=== PATIENT | male | born 1975 | race Hispanic/Latino ===

== ENCOUNTER → 2016-07-26 | Outpatient (CLI) | payer OTHER, MEDICARE ==
--- NOTE | 2016-07-26 10:52 | REP ---
CERVICAL SPINE SERIES: Eight views of the cervical spine are performed. There is no compression fracture. There is minor loss of height of the very anterior aspect of the C5 and C6 vertebral bodies, chronic in nature. There appear to be ligamentous calcifications anteriorly at C4-5 and C5-6 disc levels. There is no subluxation. The disc spaces are relatively well preserved with some minimal narrowing at C5-6 and C6-7 disc spaces. I see no radiographic evidence of significant neural foraminal narrowing. There is mild spurring of C4 through C7 vertebral bodies. IMPRESSION: Mild degenerative changes as above. Signed by Milo Huang MD 07/26/2016 04:35 P
--- NOTE | 2016-07-26 11:05 | REP ---
SACROILIAC JOINTS: Four views of sacroiliac joints performed. There is no fracture or malalignment. There is very mild joint space narrowing and subchondral sclerosis at the inferior aspect of both sacroiliac joints. IMPRESSION: Minor degenerative changes. Signed by Milo Huang MD 07/26/2016 04:35 P
--- NOTE | 2016-07-26 11:12 | REP ---
LUMBOSACRAL SPINE SERIES: Lumbosacral spine series performed with seven total views obtained, including lateral, flexion and extension views. There is no compression fracture or malalignment. There is no subluxation. There is no spondylolysis or spondylolisthesis. The disc spaces are well preserved. Tiny spur is seen at L1 and L5 levels. The posterior elements are intact. IMPRESSION: Tiny spurs at L1 and L5. Otherwise unremarkable exam. Signed by Milo Huang MD 07/26/2016 04:35 P
== END ==
LOC: MERGE 08:31 → M LAB 08:31
PROVIDERS: ATTEND Neurological Surgery
DX: E66.9 Obesity, unspecified (principal); M25.559 Pain in unspecified hip; M47.892 Other spondylosis, cervical region; M47.896 Other spondylosis, lumbar region

== ENCOUNTER → 2016-07-29 | Outpatient (CLI) | payer MEDICARE, OTHER ==
--- NOTE | 2016-07-29 14:01 | REP ---
MRI brain without contrast: History: Headache. . Comparison study: No comparison imaging. Technique: Axial and sagittal imaging planes are utilized for T1 and T2-weighted scans. Sequences include spin-echo, fast spin echo, FLAIR, and diffusion weighted sequences. MRI findings: No bony calvarial lesion is seen. Craniocervical junction and upper cervical cord are normal in appearance. There is no MR evidence of significant paranasal sinus disease. There is a 1 cm mucous retention cyst in the floor the right maxillary sinus. No intraorbital abnormality is seen. The lateral, third, and fourth ventricles are normal in size and position. Huang-white differentiation pattern is intact above and below the tentorium. There is no evidence of intracranial hemorrhage. No mass, infarction, extra-axial fluid collection or midline shift is seen. No abnormal white matter lesion is seen. Impression: Negative noncontrast brain MRI study. Signed by Scott Oneal MD 07/29/2016 01:52 P
--- NOTE | 2016-07-29 14:16 | REP ---
MRI cervical spine without contrast: History: Neck pain and cephalgia. Comparison radiographs are from July 26, 2016. Technique: Sagittal and axial T1 and T2-weighted scans are acquired in the usual fashion with and without fat saturation. Sequences include spin echo, turbo spin-echo, and STIR imaging sequences. MRI findings: There is slight straightening of the normal cervical lordosis. Cervical vertebral body heights are preserved. Alignment is normal. The cervical cord is normal in coarse, caliber and signal intensity on T1 and T2-weighted scans. Craniocervical junction is unremarkable. No extra vertebral abnormality is appreciated. On T2-weighted scans, there is some decreased disc space height and signal intensity at the C5-6 and C6-7 disc space levels consistent with early degenerative disc disease at these two levels. At C5-6, axial and sagittal images demonstrate minimal diffuse disc bulging. No neural foraminal narrowing is seen. At C6-7, there is minimal diffuse disc bulging as well. No cord compression is seen. No other abnormality. Impression: Minimal degenerative disc disease changes at C5-6 and C6-7. No disc herniation or neural foraminal narrowing. Signed by Soctt Oneal MD 07/29/2016 03:43 P
--- NOTE | 2016-07-29 15:27 | REP ---
MRI LUMBAR SPINE WITHOUT CONTRAST: HISTORY: Headache low back pain, right leg pain and numbness. COMPARISON MRI lumbar spine study is from June 02, 2016. TECHNIQUE: Sagittal and axial T1 and T2-weighted scans are acquired in the usual fashion with and without fat saturation. Sequences include spin echo, turbo spin-echo, and STIR imaging sequences. MRI FINDINGS: Cortical and medullary bone signal intensity are normal. There is a mild levoconvex curvature. Alignment is otherwise normal. No extra spinal abnormality is seen. Normal caliber aorta is noted. Conus medullaris is normal in position and appearance at L1 unchanged. Lumbar disc spaces are preserved in height and signal intensity. No disc herniation is seen. No central canal stenosis or neural foraminal narrowing is seen at any level. There is minimal facet hypertrophy and L5-S1. IMPRESSION: Minimal facet hypertrophy at L5 S1. Mild levoconvex curve. No other abnormalities seen. Signed by Scott Oneal MD 07/29/2016 03:45 P
== END ==
LOC: M RAD 12:29
PROVIDERS: ATTEND Neurological Surgery
DX: M54.81 Occipital neuralgia (principal); M46.1 Sacroiliitis, not elsewhere classified; R51 Headache; M50.922 Unspecified cervical disc disorder at C5-C6 level; M50.923 Unspecified cervical disc disorder at C6-C7 level; M89.38 Hypertrophy of bone, other site

== ENCOUNTER 2022-03-14 23:19 | Emergency (ER) | payer MEDICARE, OTHER ==
[~2022-03-14] VITALS: Ht 167.6 cm; Wt 136.4 kg
[2022-03-15 00:32] LABS: BASO # 0.1 10^3/uL (0.0-0.2); BASO % 0.7 % (0.0-1.0); EOS # 0.4 10^3/uL (0.0-0.5); EOS % 3.8 % (0.0-3.0); HEMATOCRIT 44.3 % (42.0-52.0); HEMOGLOBIN 14.6 g/dl (13.5-17.5); LYMPH # 3.7 10^3/uL (1.5-5.0); LYMPH % 34.4 % (24.0-44.0); MEAN CORPUSCULAR HEMOGLOBIN 28.6 pg (27.0-33.0); MEAN CORPUSCULAR VOLUME 86.7 fl (80.0-96.0); MONO % 9.8 % (2.0-8.0); NEUTROPHILS # 5.4 10^3/uL (1.5-8.5); NEUTROPHILS % 50.5 % (36.0-66.0); PLATELET COUNT, AUTOMATED 261 10^3/uL (150-450); RED BLOOD COUNT 5.11 10^6/uL (4.30-6.10); WHITE BLOOD COUNT 10.7 10^3/uL (4.0-10.0)
[2022-03-15 01:02] LABS: ALBUMIN 3.6 G/DL (3.2-5.2); ALT/SGPT 31 U/L (7.0-40); BILIRUBIN,DIRECT < 0.1 MG/DL (<0.4); BILIRUBIN,TOTAL 0.3 MG/DL (0.3-1.2); BLOOD UREA NITROGEN 19 MG/DL (9-23); CALCIUM LEVEL 9.2 MG/DL (8.5-10.1); CARBON DIOXIDE LEVEL 27 MMOL/L (20-31); CHLORIDE LEVEL 103 MMOL/L (98-107); CREATININE FOR GFR 0.72 MG/DL (0.70-1.30); GLOMERULAR FILTRATION RATE > 60.0 (>60); GLUCOSE, FASTING 136 MG/DL (60-100); LIPASE 40 U/L (12-53); POTASSIUM SERUM 3.8 MMOL/L (3.5-5.1); SODIUM LEVEL 139 MMOL/L (136-145); TOTAL PROTEIN 6.6 G/DL (5.7-8.2)
[2022-03-15] MEDS ORDERED: KETOROLAC 60MG 2ML VIAL IM ONE (04:20)
[2022-03-15] MEDS ORDERED: TAMSULOSIN 0.4 MG CAP PO ONE (04:20)
[2022-03-15] MEDS ORDERED: FLOM0.4C39 PO (04:20)
[2022-03-15] MEDS ORDERED: KETO10TAB PO (04:20)
[2022-03-15 04:41] VITALS: BP 161/91
== END 2022-03-15 04:50 | disposition home or self-care (01) ==
LOC: M ED 23:19
DX: N20.1 Calculus of ureter (principal); F43.10 Post-traumatic stress disorder, unspecified; Z91.018 Allergy to other foods; Z79.899 Other long term (current) drug therapy
CPT/HCPCS: 36415; 74176; 80048; 80076; 81000; 81015; 83690; 85025; 93041; 96372; 99284; J1885

== ENCOUNTER → 2022-12-03 | Outpatient (REF) | payer MEDICARE, OTHER ==
[~2022-12-03] MED LIST: FLOM0.4C39 PO; KETO10TAB PO
[2022-12-03 14:04] LABS: SOURCE, BODY FLUID RT KNEE; SYNOVIAL FLUID COLOR ORANGE (COLORLESS)
[2022-12-03 14:07] LABS: CRYSTALS, BODY FLUID NONE SEEN (NONE SEEN); SOURCE, BODY FLUID CRYSTALS RT KNEE
[2022-12-03 14:35] LABS: SOURCE, BODY FLUID GLUCOSE RT KNEE
== END ==
LOC: M LAB REF 12:53
PROVIDERS: ATTEND Internal Medicine Hematology & Oncology
DX: M25.561 Pain in right knee (principal)

== ENCOUNTER → 2022-12-13 | Outpatient (CLI) | payer OTHER ==
[2022-12-13 14:27] LABS: BASO # 0.1 10^3/uL (0.0-0.2); BASO % 0.9 % (0.0-1.0); EOS # 0.1 10^3/uL (0.0-0.5); EOS % 1.1 % (0.0-3.0); HEMATOCRIT 49.5 % (42.0-52.0); HEMOGLOBIN 15.6 g/dl (13.5-17.5); LYMPH # 2.9 10^3/uL (1.5-5.0); LYMPH % 24.8 % (24.0-44.0); MEAN CORPUSCULAR HEMOGLOBIN 27.6 pg (27.0-33.0); MEAN CORPUSCULAR HGB CONC 31.5 g/dl (32.0-36.5); MEAN CORPUSCULAR VOLUME 87.5 fl (80.0-96.0); MONO # 0.9 10^3/uL (0.0-0.8); MONO % 7.7 % (2.0-8.0); NEUTROPHILS # 7.5 10^3/uL (1.5-8.5); NEUTROPHILS % 64.6 % (36.0-66.0); PLATELET COUNT, AUTOMATED 180 10^3/uL (150-450); RED BLOOD COUNT 5.66 10^6/uL (4.30-6.10); WHITE BLOOD COUNT 11.6 10^3/uL (4.0-10.0)
[2022-12-13 14:49] LABS: URIC ACID 6.4 MG/DL (3.7-9.2)
[2022-12-13 14:51] LABS: C REACTIVE PROTEIN QUANTITATIV 1.9 MG/DL (<1.0)
[2022-12-13 14:52] LABS: RHEUMATOID FACTOR QUANT 3.8 IU/ML (<14)
[2022-12-13 14:54] LABS: ERYTHROCYTE SEDIMENTATION RATE 48 mm/hr (0-15)
[2022-12-14 12:10] LABS: ANTINUCLEAR ANTIBODIES DIRECT Negative (Negative)
== END ==
LOC: M PLALAB 11:23
PROVIDERS: ATTEND Orthopaedic Surgery
DX: M25.561 Pain in right knee (principal)